=== PATIENT | male | born 1995 | race Hispanic/Latino ===

== ENCOUNTER 2017-10-28 02:59 | Emergency (ER) | payer OTHER, SELFPAY ==
[2017-10-28] MEDS ORDERED: Loratadine 10 MG TAB PO SCH (03:30)
== END 2017-10-28 04:35 | disposition home or self-care (01) ==
LOC: ERS 02:59
DX: L50.9 Urticaria, unspecified (principal); J45.909 Unspecified asthma, uncomplicated
CPT/HCPCS: 99282